=== PATIENT | male | born 1965 | race Caucasian/White ===

== ENCOUNTER → 2021-03-19 | Outpatient (CLI) | payer BC ==
--- NOTE | 2021-03-19 13:25 | RAD ---
Chest, PA and Lateral: Technique: PA and lateral views of the chest were obtained. History: Shortness of breath. Comparison: None. Findings: The heart and pulmonary vasculature appear within normal limits. The lungs are clear. The pleural ma rgins are clear. Impression: No acute chest process is seen. Electronically signed by: Hilton Lambert MD (03/19/2021 1:22 PM) [id number]
--- NOTE | 2021-03-19 13:36 | NUR ---
NURSING NOTE OUTPATIENT PRE-VOID 137MLS. PT UNABLE TO VOID. NO POST VOID SCAN OBTAINED. PHONED RESULTS TO DR ESPINOSA. HENRY KEVIN.
== END ==
LOC: RAD 12:59
PROVIDERS: ATTEND Family Medicine
DX: R33.9 Retention of urine, unspecified (principal); R06.02 Shortness of breath
CPT/HCPCS: 71046

== ENCOUNTER 2021-09-03 16:53 | Emergency (ER) | payer BC ==
[~2021-09-03] VITALS: Ht 175.3 cm; Wt 79.0 kg
[2021-09-03 18:34] VITALS: BP 114/71
--- NOTE | 2021-09-03 19:16 | PHYS DOC ---
Past History Past Surgical History: Other Additional Past Surgical Histo: hernia repair (DOLORES JONES APRN) Alcohol Use: None (DOLORES JONES APRN) Adult General Chief Complaint Chief Complaint: SHORTNESS OF BREATH HPI HPI Patient is a 56-year-old male who presents to the emergency department complaining of headaches in the morning when he wakes up. Patient also reports fevers in the mornings of 102 are 103 for the past 4 to 5 days it is resolved with Tylenol p.o. in the morning, reports his fevers do not come back. Patient reports his headache pain is a 4 or 5 out of 10 in the morning when he wakes up however denies headaches at this time. Patient reports he thinks he might need an antibiotic, called his primary care physician who did not authorize an antibiotic and reports his primary care physician told him to come to the emergency department for evaluation. Patient denies chills, chest pains, shortness of breath, nasal or chest congestion, denies sore throat. Denies cough. Denies dizziness, syncopal or near syncopal episodes. Denies visual disturbances. Patient denies other physical complaints or physical concerns. (DOLORES JONES APRN) Review of Systems Review of Systems 14 body systems of review of systems have been reviewed. See HPI for pertinent positives and negative responses, otherwise all other systems are negative, nonpertinent or noncontributory. Constitutional: Negative except as outlined in HPI above. Skin: Negative except as outlined in HPI above. Eyes: Negative except as outlined in HPI above. HENT: Negative except as outlined in HPI above. Respiratory: Negative except as outlined in HPI above. Cardiovascular: Negative except as outlined in HPI above. GI: Negative except as outlined in HPI above. : Negative except as outlined in HPI above. Musculoskeletal: Negative except as outlined in HPI above. Integument: Negative except as outlined in HPI above. Neurologic: Negative except as outlined in HPI above. Endocrine: Negative except as outlined in HPI above. Lymphatic: Negative except as outlined in HPI above. Psychiatric: Negative except as outlined in HPI above. (DOLORES JONES APRN) Allergies Allergies Allergies Coded Allergies Type Severity Reaction Last Updated Verified Penicillins Allergy Unknown 09/03/21 Yes (DOLORES JONES APRN) Physical Exam Physical Exam Constitutional: Well developed, well nourished, no acute distress, non-toxic appearance. 56-year-old male in no apparent distress. HENT: Normocephalic, atraumatic. Oropharynx moist, pink, no deep tissue infectious process appreciated, no lymphadenopathy of the head and neck appreciated, bilateral ear wax impaction unable to appreciate tympanic membranes. Eyes: Conjunctiva normal, no discharge. Neck: Normal range of motion, no stridor. Cardiovascular: No cyanosis appreciated, distal cap refill less than 2 seconds. Lungs & Thorax: Patient is in no respiratory distress, no audible adventitious lung sounds appreciated. Abdomen: Nontender, no abnormalities noted. Skin: Warm, dry, no erythema, no rash. Back: No tenderness, no deformities. Extremities: No tenderness, no cyanosis, no clubbing, ROM intact, no edema. Neurologic: Alert and oriented X 3, normal motor function, normal sensory function, no focal deficits noted. Psychologic: Affect normal, judgement normal, mood normal. (DOLORES JONES APRN) Current Patient Data Vital Signs Vital Signs Date Time Temp Pulse Resp B/P (MAP) Pulse Ox O2 Delivery O2 Flow Rate FiO2 09/03/21 18:34 99.8 105 20 114/71 (85) 95 Room Air (DOLORES JONES APRN) EKG EKG [] (DOLORES JONES APRN) Radiology/Procedures Radiology/Procedures [] (DOLORES JONES APRN) Heart Score C/O Chest Pain: No Risk Factors: Risk Factors: DM, Current or recent (<one month) smoker, HTN, HLP, family history of CAD, obesity. Risk Scores: Risk Factors: DM, Current or recent (<one month) smoker, HTN, HLP, family history of CAD, obesity. (DOLORES JONES APRN) Course & Med Decision Making Course & Med Decision Making Pertinent Labs and Imaging studies reviewed. (See chart for details) 56-year-old male, vital signs reviewed, presents to the emergency department requesting an antibiotic. Patient's physical examination concerning for bilateral earwax impaction. Patient denies headache at this time, denies fevers or chills at this time, denies any symptoms. Patient reveals after physical examination is that he has problems with earwax impactions and uses candles to remove earwax, patient reports he does get headaches when his ears are impacted and did not think about this prior to contacting his primary care physician. Patient states he feels embarrassed and is ready to go home and use his earwax candles to remove his earwax. Discussed with patient I was unable to see his tympanic membranes to rule out a ear infection. Patient reports he most likely does not have an ear infection, reports he will come back to the emergency department if his symptoms do not resolve after removing his earwax at home. Offered patient ear irrigation to remove earwax in the emergency department today, patient refuses this reporting he can do this at home. Discussed with patient strict follow-up with primary care physician for ongoing symptoms, return to ER precautions or concerns. Patient is amenable to ED discharge planning. Discussed with the patient all findings and diagnostic testing as well as the need to follow-up with their primary care provider for further evaluation and treatment or return to the ED if any new or worsening symptoms. Strict return precautions were also discussed at length, the patient voiced understanding and agreement with the discharge planning. The patient was nontoxic in appearance, in no apparent distress, and hemodynamically stable at the time of disposition. (DOLORES JONES APRN) Dragon Disclaimer Dragon Disclaimer This electronic medical record was generated, in whole or in part, using a voice recognition dictation system. (DOLORES JONES APRN) Attending Co-Sign The patient was seen and interviewed as well as examined at the bedside. The chart was reviewed. The case was discussed. Agree with the plan of care. (SITA SMITH DO) Departure Departure: Impression: Primary Impression: Impacted cerumen of both ears Disposition: HOME / SELF CARE / HOMELESS Condition: GOOD Referrals: GEMA ESPINOSA MD (PCP) Patient Instructions: Cerumen Impaction Additional Instructions: You are seen in the emergency department today for intermittent headaches. Your physical examination revealed both of your ears impacted with wax. You had indicated you have a history of this and use earwax candles at home to help remove your earwax. Please use these as directed, follow-up with your primary care physician for returning symptoms. Return to the emergency department for worsening symptoms or other concerns. Thank you for visiting our Emergency Department. It was a pleasure taking care of you today in the emergency department and we appreciate you trusting us with your care. If any additional problems come up don't hesitate to return to visit us. Please follow up with your primary care provider so they can plan additional care if needed and know about the problem that you had. If symptoms worsen come back to the Emergency Department. Any concerning symptoms that start such as chest pain, shortness of air, weakness or numbness on one side of the body, running high fevers or any other concerning symptoms return to the ER. DOLORES JONES APRN Sep 03, 2021 19:16 SITA SMITH DO Sep 04, 2021 05:52
== END 2021-09-03 19:29 | disposition home or self-care (01) ==
LOC: ER 16:53
DX: H61.23 Impacted cerumen, bilateral (principal); R51.9 Headache, unspecified; Z88.0 Allergy status to penicillin
CPT/HCPCS: 99281-25